=== PATIENT | female | born 1950 | race Caucasian/White ===

== ENCOUNTER 2020-11-01 14:19 | Outpatient (CLI) | payer MEDICARE, SELFPAY ==
--- NOTE | ~2020-11-01 | XR_ITS ---
EXAMINATION: XR chest 2V 11/01/2020 14:44 INDICATION: Cough for one month PROCEDURE: 2 view chest COMPARISON: No prior studies for comparison. FINDINGS: The lungs are clear. The cardiomediastinal silhouette is within normal limits. There are no pleural effusions. There is no pneumothorax suspected. IMPRESSION: 1: NO ACUTE CARDIOPULMONARY DISEASE. Reviewed, dictated and finalized at location A. COOK
== END 2020-11-01 14:20 | disposition home or self-care (01) ==
LOC: CHSIMG 14:23
PROVIDERS: PCP Internal Medicine; Visit Provider Internal Medicine
DX: R05 Cough (principal)
CPT/HCPCS: 71046

== ENCOUNTER 2020-11-03 13:55 | Outpatient (CLI) | payer MEDICARE, SELFPAY ==
--- NOTE | ~2020-11-03 | MM_ITS ---
EXAMINATION: MM screening [facility] BI w soumya HISTORY: Screening mammogram, history of left breast cancer TECHNIQUE: Craniocaudal and mediolateral oblique 3-D tomosynthesis images were obtained and synthetic 2-D images were generated. CAD analysis was submitted and interpreted. COMPARISON: 08/26/2015, 08/22/2015, 06/16/2012, 02/28/2011 BREAST PARENCHYMAL COMPOSITION: There are scattered areas of fibroglandular density. FINDINGS: Scattered benign-appearing calcifications are present. Stable lumpectomy changes are noted in the breasts. There is no evidence of suspicious mass, calcification, or architectural distortion t o suggest malignancy in either breast. There has been no suspicious interval change. IMPRESSION: 1. No mammographic evidence of malignancy. 2. Recommend routine screening mammography in one year. BI-RADS Category 2: Benign finding(s). Reviewed, dictated and finalized at location A. SPRINKLER SERVICE TECHNICIAN
== END 2020-11-03 13:56 | disposition home or self-care (01) ==
PROVIDERS: PCP Internal Medicine; Visit Provider Internal Medicine
DX: Z12.31 Encounter for screening mammogram for malignant neoplasm of breast (principal)
CPT/HCPCS: 77063; 77067

== ENCOUNTER 2023-08-13 16:08 | Outpatient (CLI) | payer MEDICARE, SELFPAY ==
--- NOTE | ~2023-08-13 | CT_ITS ---
EXAMINATION: CT abdomen pelvis w con DATE: 08/13/2023 17:50 INDICATION: Lower abdominal pain and abdominal mass TECHNIQUE: Computed tomography (CT) of the abdomen and pelvis was performed with 100 mL Omnipaque-350 intravenous contrast. Automated exposure control and iterative reconstruction technique were employe d. The dose-length product was 1077.93 mGy-cm. COMPARISON: 08/27/2012 FINDINGS: Stable appearance of a region of air trapping the right lower lobe containing tubular nonenhancing fl uid attenuation branching structure likely representing a mucus impacted bronchus with secondary bron chial atresia. There are couple small calcified nodules more peripherally in the right lower lobe con sistent with old granulomatous disease. Heart size is normal. No pericardial or pleural effusion. Sma ll sliding-type hiatal hernia. Small region of focal hepatic steatosis at the ligamentum teres. Gallbladder, spleen, bilateral adren al glands and kidneys are normal. Dystrophic calcific lesion at the tail of the pancreas, likely sequ annita of chronic pancreatitis. Bladder, anteverted uterus and bilateral adnexa are normal. Normal appen kim. No bowel obstruction. Moderate-sized fat-containing umbilical hernia. There is a large infraumbilical ventral hernia with a significant length of the transverse colon extending through the 4.2 x 3.6 cm os. There are multiple small foci of extraluminal gas loculated within the fat along the anterior margin of the distal port ion of the herniated colon at the left side of the hernia sac likely related to perforated diverticul itis. There is stranding in the surrounding fat within the hernia sac as well as in the overlying sub cutaneous fat. No fluid containing abscess or free intraperitoneal fluid. There are additional divert icula along the sigmoid colon. No pathologically enlarged abdominal or pelvic lymphadenopathy. Severe lower lumbar spondylosis. IMPRESSION: 1. Likely perforated diverticulitis arising from the distal transverse colon which is herniated into a large infraumbilical ventral hernia with small collection of multiple foci of extraluminal gas with in the hernia sac but no fluid containing abscess. 2. Small sliding-type hiatal hernia. 3. Moderate-sized fat-containing umbilical hernia. Reviewed, dictated and finalized at location A. IMPRESSION: 1. Likely perforated diverticulitis arising from the distal transverse colon wh ich is herniated into a large infraumbilical ventral hernia with small collecti on of multiple foci of extraluminal gas within the hernia sac but no fluid cont aining abscess. 2. Small sliding-type hiatal hernia. 3. Moderate-sized fat-containing umbilical hernia.
[2023-08-13 16:45] LABS: Basophils Absolute Auto 0.04 K/mm3 (0.00-0.10); Basophils Percent Auto 0.3 % (0.0-1.0); Eosinophils Absolute Auto 0.05 K/mm3 (0.02-0.50); Eosinophils Percent Auto 0.4 % (1.0-6.0); Hematocrit 35.8 % (35.0-42.0); Immature Granulocyte Absolute 0.07 K/mm3 (0.00-0.00); Immature Granulocyte Percent A 0.5 % (0.0-0.0); Lymphocytes Absolute Auto 1.33 K/mm3 (1.10-4.50); Lymphocytes Percent Auto 9.9 % (18.0-42.0); Mean Corpuscular HGB Conc 33.5 g/dL (32.0-36.0); Mean Corpuscular Hemoglobin 32.9 pg (27.0-31.0); Mean Corpuscular Volume 98.1 fL (78.0-102.0); Mean Platelet Volume 11.6 fl (9.2-11.8); Monocytes Absolute Auto 1.21 K/mm3 (0.10-0.90); Neutrophils Absolute Auto 10.8 K/mm3 (1.7-7.2); Neutrophils Percent Auto 79.9 % (50.0-70.0); Platelet Count Result 198 K/mm3 (150-420); Red Blood Count 3.65 M/mm3 (4.20-5.40); White Blood Count 13.5 K/mm3 (4.8-10.8)
[2023-08-13 17:12] LABS: Alanine Aminotransferase 20 U/L (14-59); Albumin Level 2.8 g/dL (3.4-5.0); Alkaline Phosphatase 91 U/L (46-116); Amylase 17 U/L (25-115); Anion Gap 13 mmol/L (8-16); Aspartate Amino Transferase 16 U/L (15-37); Bilirubin,Total 0.8 mg/dL (0.00-1.00); Blood Urea Nitrogen 24 mg/dL (7-18); Calcium 8.9 mg/dL (8.5-10.1); Carbon Dioxide 23 mmol/L (21-32); Chloride 100 mmol/L (98-108); Estimated Glomerular Filt Rate 49; Glucose 127 mg/dL (70-99); Lipase 23 U/L (16-77); Osmolality Calculated 288 mOsm/kg (285-295); Potassium 3.4 mmol/L (3.5-5.1); Sodium 136 mmol/L (136-145); Total Protein 6.9 g/dL (6.4-8.2)
[2023-08-13 18:22] LABS: Appearance Urine Clear (Clear); Bilirubin Urine Negative (Negative); Blood Urine Negative (Negative); Color Urine Yellow (Yellow); Glucose Urine UA Negative (Negative); Ketones Urine Negative (Negative); Leukocyte Esterase Ur Negative (Negative); Nitrate Urine Negative (Negative); Protein Urine Negative (Negative); Specific Grav Ur <= 1.005 (1.010-1.020); Urobilinogen Urine 0.2 mg/dL (0.2-1.0)
[2023-08-13 18:23] LABS: Add Urine Microscopic? NO
== END 2023-08-13 16:09 | disposition home or self-care (01) ==
PROVIDERS: PCP Internal Medicine; Visit Provider Nurse Practitioner Family
DX: R10.9 Unspecified abdominal pain (principal); R11.2 Nausea with vomiting, unspecified; K57.92 Diverticulitis of intestine, part unspecified, without perforation or abscess without bleeding; K43.9 Ventral hernia without obstruction or gangrene; K44.9 Diaphragmatic hernia without obstruction or gangrene; K42.9 Umbilical hernia without obstruction or gangrene
CPT/HCPCS: 36415; 74177; 80053; 81003; 82150; 83690; 85025; 87040; 87086; 87088; Q9967

== ENCOUNTER 2023-08-13 19:52 | Emergency (ER) | payer MEDICARE, SELFPAY ==
[2023-08-13 19:55] VITALS: BP 137/75; PULSE 85; RESP 18; TEMP 36.6; O2SAT 97
--- NOTE | 2023-08-13 23:00 | PC.NURSE ---
Assumed care of pt from CM Lorenzana at this time.
[2023-08-13 23:01] VITALS: BP 142/73; PULSE 85; RESP 20; O2SAT 99
--- NOTE | 2023-08-13 23:11 | PC.NURSE ---
report and care given to CM Shaikh. all questions answered.
[2023-08-13 23:16] VITALS: BP 143/72; PULSE 84; RESP 20; O2SAT 100
[2023-08-13 23:18] LABS: Lactic Acid Reflex 1.3 mmol/L (0.7-2.0)
[2023-08-13 23:31] VITALS: BP 134/74; PULSE 85; RESP 22; O2SAT 95
[2023-08-13 23:46] VITALS: BP 134/77; PULSE 88; RESP 21; O2SAT 99
--- NOTE | 2023-08-13 23:47 | ED.ABDPAIN ---
HPI - Abdominal Pain General Chief Complaint: Abdominal Pain Stated Complaint: abnormal abd. CT Time Seen by Provider: 08/13/23 22:50 Source: patient and old records reviewed Mode of arrival: ambulatory Limitations: no limitations History of Present Illness HPI narrative: Patient is a 72-year-old female who presents to the ED with report of abdominal pain and abnormal CT. Patient reports over the last 1 week she has had intermittent fevers, Tmax 101.6. Last Saturday she had a persistent fever all day and began vomiting that night. She had pain in her left and mid lower abdomen at that time. She thought she may have strained a muscle, vomiting. She denies any further vomiting since then, but does report persistent fevers and abdominal pain. She was seen at her primary care doctor's office today and had outpatient laboratory studies and CT scan of her abdomen. She was told the CT was abnormal and to come to the ED for further evaluation. Patient denies any current nausea. Denies diarrhea or constipation. Last BM this morning or yesterday. Denies rectal bleeding or melena. Denies urinary complaints. Patient also reports her abdomen has been red and firm since yesterday. Related Data Allergies Allergy/AdvReac Type Severity Reaction Status Date / Time No Known Allergies Allergy Unknown Verified 09/09/09 13:37 NKFA Allergy Unknown Uncoded 05/11/03 12:28 Review of Systems Review of Systems: CONSTITUTIONAL: Denies fever, chills, or sweats. CARDIOVASCULAR: Denies chest pain. RESPIRATORY: Denies dyspnea. GASTROINTESTINAL: See HPI. GENITOURINARY: Denies dysuria or hematuria. SKIN: See HPI. MUSCULOSKELETAL: Denies back pain, joint pain, or myalgia. All systems reviewed & are unremarkable except as noted in HPI and below [facility] Family History Family History Other Family history of type 2 diabetes mellitus Social History Social History Smoking status: Never smoker Exam Narrative: GENERAL: Well appearing, obese with BMI of 35.8, non-toxic, in no acute distress. HEAD: Normocephalic, atraumatic. NECK: Supple. No adenopathy, no masses. RESPIRATORY: Airway patent, respirations nonlabored. Clear to auscultation bilaterally, no rales, rhonchi, wheezing. CARDIOVASCULAR: Regular rate and rhythm without murmurs, rubs, or gallops. Radial pulses 2+ and equal bilaterally. ABDOMINAL: Soft, tenderness in left lower quadrant and left-sided suprapubic region. Nondistended, no hepatosplenomegaly. Normoactive BS. Anterior lower abdominal wall appears erythematous and warm with palpable hernia bulge just below umbilicus. Focal tenderness over hernia bulge. Hernia bulge feels slightly firm, no significant movement of bowels felt with manipulation. Erythema extends across entire lower abdomen. Small umbilical hernia also noted, nontender. MUSCULOSKELETAL: Moves all extremities. Strength/ROM intact without gross deformities. SKIN: Warm, dry. NEURO: A&O X3. Speech clear. Cranial nerves II-XII grossly intact. Steady gait. No ataxic movements. PSYCHIATRIC: Appropriate mood and affect. Normal interaction. Course Vital Signs Vital signs: Vital Signs Temperature 97.9 F 08/13/23 19:55 Pulse Rate 85 08/13/23 19:55 Respiratory Rate 18 08/13/23 19:55 Blood Pressure 137/75 08/13/23 19:55 Pulse Oximetry 97 08/13/23 19:55 Oxygen Delivery Room Air 08/13/23 19:55 Temperature 97.9 F 08/13/23 19:55 Pulse Rate 88 08/13/23 23:46 Respiratory Rate 21 H 08/13/23 23:46 Blood Pressure 134/77 08/13/23 23:46 Pulse Oximetry 99 08/13/23 23:46 Oxygen Delivery Room Air 08/13/23 19:55 MDM - Abdominal Pain MDM Narrative Medical decision making narrative: Patient presented to ED with 1 week history of left lower abdominal pain, intermittent fevers, abnormal outpatient CT. Review of records albertina
[2023-08-14] MEDS: SODIUM CHLORIDE 0.9% IV 1,000 ML 999 ML IV CONT (00:20)
[2023-08-14] MEDS: PIPERACILLN/TAZ 3.375GM/NS50ML 3.375 GM/50 ML BAG IVPB (00:21)
[2023-08-14 01:06] LABS: Appearance Urine Clear (Clear); Bacteria Urine None Seen /hpf; Bilirubin Urine Negative (Negative); Blood Urine Negative (Negative); Color Urine Yellow (Yellow); Glucose Urine UA Negative (Negative); Ketones Urine Trace mg/dL (Negative); Leukocyte Esterase Ur Negative LEU/UL (Negative); Need Manual Microscopic Reviewed; Nitrate Urine Negative (Negative); Non Pathogenic Casts 0-2; Protein Urine 1+ mg/dL (Negative); Squamous Epithelial Cell Urine None seen /hpf (Few); WBC Urine 0-5 /hpf; pH Urine 5.5 (5.0-9.0)
[2023-08-14 01:07] LABS: Add Urine Microscopic? YES; Specific Grav Ur 1.089 (1.001-1.035)
[2023-08-14] MEDS: LACTATED RINGERS 1,000 ML 999 ML IV CONT (01:45)
[2023-08-14 01:47] VITALS: BP 113/54; PULSE 93; RESP 24; O2SAT 96
== END 2023-08-14 02:27 | disposition short-term general hospital (02) ==
PROVIDERS: Emergency Provider Physician Assistant; PCP Internal Medicine
DX: K57.20 Diverticulitis of large intestine with perforation and abscess without bleeding (principal); K43.6 Other and unspecified ventral hernia with obstruction, without gangrene; R50.9 Fever, unspecified
CPT/HCPCS: 36415; 81001; 83605; 96361; 96365; 99285; J2543; J7030; J7120

== ENCOUNTER 2023-09-20 12:01 | Outpatient (CLI) | payer MEDICARE, SELFPAY ==
--- NOTE | ~2023-09-20 | XR_ITS ---
EXAMINATION: XR chest 2V DATE: 09/20/2023 12:33 INDICATION: Fever and cough. TECHNIQUE: Frontal and lateral views of the chest were obtained. COMPARISON: Chest 2 views 11/01/2020, CT abdomen and pelvis 08/13/2023 FINDINGS: There is no pneumonia, pleural effusion, or pneumothorax. The heart size is normal. There i s mild chronic anterior wedging of T12 vertebral body. IMPRESSION: 1. No acute cardiopulmonary disease. Reviewed, dictated and finalized at location E.
[2023-09-20 12:22] LABS: Basophils Absolute Auto 0.04 K/mm3 (0.00-0.10); Basophils Percent Auto 0.5 % (0.0-1.0); Eosinophils Absolute Auto 0.27 K/mm3 (0.02-0.50); Eosinophils Percent Auto 3.3 % (1.0-6.0); Hematocrit 37.6 % (35.0-42.0); Hemoglobin 12.1 g/dL (11.7-13.8); Immature Granulocyte Absolute 0.02 K/mm3 (0.00-0.00); Immature Granulocyte Percent A 0.2 % (0.0-0.0); Lymphocytes Absolute Auto 1.55 K/mm3 (1.10-4.50); Lymphocytes Percent Auto 18.8 % (18.0-42.0); Mean Corpuscular HGB Conc 32.2 g/dL (32.0-36.0); Mean Corpuscular Hemoglobin 32.7 pg (27.0-31.0); Mean Corpuscular Volume 101.6 fL (78.0-102.0); Mean Platelet Volume 10.5 fl (9.2-11.8); Monocytes Absolute Auto 0.78 K/mm3 (0.10-0.90); Monocytes Percent Auto 9.5 % (2.0-11.0); Neutrophils Absolute Auto 5.6 K/mm3 (1.7-7.2); Neutrophils Percent Auto 67.7 % (50.0-70.0); Platelet Count Result 213 K/mm3 (150-420); Red Cell Distribution Width 14.8 % (11.6-14.4); White Blood Count 8.2 K/mm3 (4.8-10.8)
[2023-09-20 13:08] LABS: Alanine Aminotransferase 17 U/L (14-59); Albumin Level 3.1 g/dL (3.4-5.0); Alkaline Phosphatase 113 U/L (46-116); Anion Gap 11 mmol/L (8-16); Aspartate Amino Transferase 14 U/L (15-37); Bilirubin,Total 0.4 mg/dL (0.00-1.00); Blood Urea Nitrogen 19 mg/dL (7-18); CRP 7.6 mg/dL (0.0-0.9); Calcium 9.1 mg/dL (8.5-10.1); Carbon Dioxide 27 mmol/L (21-32); Chloride 105 mmol/L (98-108); Estimated Glomerular Filt Rate > 60; Glucose 113 mg/dL (70-99); Osmolality Calculated 299 mOsm/kg (285-295); Potassium 3.7 mmol/L (3.5-5.1); Sodium 143 mmol/L (136-145); Total Protein 6.5 g/dL (6.4-8.2)
== END 2023-09-20 12:02 | disposition home or self-care (01) ==
LOC: CHSLAB 12:03
PROVIDERS: PCP Internal Medicine; Visit Provider Internal Medicine
DX: R05.9 Cough, unspecified (principal); R50.9 Fever, unspecified; K57.80 Diverticulitis of intestine, part unspecified, with perforation and abscess without bleeding
CPT/HCPCS: 36415; 71046; 80053; 85025; 86140; 87040

== ENCOUNTER 2023-10-01 08:54 | Outpatient (CLI) | payer MEDICARE, SELFPAY ==
--- NOTE | ~2023-10-01 | CT_ITS ---
CT of the Abdomen and Pelvis: Indication: Abscess Technique: 2.5 mm axial scans were obtained through the abdomen and pelvis following intravenous adm inistration of 100 cc of Omnipaque 350. Dose reduction technique was used on this scan by utilizing a utomated exposure control and iterative reconstruction technique. The dose-length product (DLP) was 1 008.27 mGy-cm. COMPARISON: 08/13/2023 Findings: Scans through the lung bases demonstrate stable impacted bronchus or thrombosed segmental pulmonary artery at the right lung base.. The liver, spleen, pancreas, gallbladder, adrenals and kidneys are within normal limits. No evidence of aortic aneurysm. No lymphadenopathy. No bowel obstruction or bowel wall thickening. There is no evidence to suggest acute appendicitis. Ev idence of prior ventral herniorrhaphy. Small seroma present in the anterior subcutaneous soft tissues . Images through the pelvis were performed. Urinary bladder unremarkable. No adnexal mass seen. No asci ladan seen. Impression: Evidence of interval ventral herniorrhaphy. Small seroma in the anterior subcutaneous soft tissues, v ersus possibly abscess. No other significant abnormality or pelvis. Stable impacted bronchus or thrombosed segmental pulmonary artery at the right lung base. Reviewed, dictated and finalized at location . CEMENTER Impression: Evidence of interval ventral herniorrhaphy. Small seroma in the anterior subcut aneous soft tissues, versus possibly abscess. No other significant abnormality or pelvis. Stable impacted bronchus or thrombosed segmental pulmonary artery at the right lung base.
== END 2023-10-01 08:55 | disposition home or self-care (01) ==
LOC: CHSIMG 08:57
PROVIDERS: PCP Internal Medicine; Visit Provider Internal Medicine
DX: K65.1 Peritoneal abscess (principal); R91.8 Other nonspecific abnormal finding of lung field
CPT/HCPCS: 74177; Q9967

== ENCOUNTER 2023-10-04 10:16 | Outpatient (CLI) | payer MEDICARE, SELFPAY ==
--- NOTE | ~2023-10-04 | US_ITS ---
EXAMINATION: US venous doppler [facility] DATE: 10/04/2023 11:13 INDICATION: Lower limb swelling. TECHNIQUE: Grayscale ultrasound images without and with compression and Doppler ultrasound images of the bilateral lower extremity veins were obtained. COMPARISON: None. FINDINGS: The visualized portions of right common femoral vein, profunda (deep) femoral vein, femoral vein, and greater saphenous vein outflow are patent. There is thrombus in right popliteal, posterior tibial, a nd peroneal veins. The visualized portions of left common femoral vein, profunda femoral vein, femoral vein, popliteal v ein, peroneal veins, posterior tibial veins, and greater saphenous vein outflow are patent. IMPRESSION: 1. Deep vein thrombosis involving right popliteal, posterior tibial, and peroneal veins. Reviewed, dictated and finalized at location A. EY STRIPPER IMPRESSION: 1. Deep vein thrombosis involving right popliteal, posterior tibial, and peron eal veins.
[2023-10-04 10:32] LABS: Basophils Absolute Auto 0.05 K/mm3 (0.00-0.10); Basophils Percent Auto 0.6 % (0.0-1.0); Eosinophils Absolute Auto 0.34 K/mm3 (0.02-0.50); Hematocrit 38.5 % (35.0-42.0); Hemoglobin 12.2 g/dL (11.7-13.8); Immature Granulocyte Absolute 0.03 K/mm3 (0.00-0.00); Immature Granulocyte Percent A 0.3 % (0.0-0.0); Lymphocytes Absolute Auto 2.17 K/mm3 (1.10-4.50); Lymphocytes Percent Auto 25.3 % (18.0-42.0); Mean Corpuscular HGB Conc 31.7 g/dL (32.0-36.0); Mean Corpuscular Hemoglobin 31.9 pg (27.0-31.0); Mean Corpuscular Volume 100.8 fL (78.0-102.0); Mean Platelet Volume 10.4 fl (9.2-11.8); Monocytes Absolute Auto 0.63 K/mm3 (0.10-0.90); Monocytes Percent Auto 7.3 % (2.0-11.0); Neutrophils Absolute Auto 5.4 K/mm3 (1.7-7.2); Neutrophils Percent Auto 62.5 % (50.0-70.0); Platelet Count Result 233 K/mm3 (150-420); Red Blood Count 3.82 M/mm3 (4.20-5.40); Red Cell Distribution Width 14.7 % (11.6-14.4); White Blood Count 8.6 K/mm3 (4.8-10.8)
[2023-10-04 10:55] LABS: D Dimer 20.33 mg/L (0.19-0.50)
[2023-10-04 11:38] LABS: Alanine Aminotransferase 22 U/L (14-59); Albumin Level 3.3 g/dL (3.4-5.0); Alkaline Phosphatase 107 U/L (46-116); Anion Gap 9 mmol/L (8-16); Aspartate Amino Transferase 18 U/L (15-37); Bilirubin,Total 0.6 mg/dL (0.00-1.00); Blood Urea Nitrogen 14 mg/dL (7-18); CRP 1.3 mg/dL (0.0-0.9); Carbon Dioxide 29 mmol/L (21-32); Chloride 105 mmol/L (98-108); Estimated Glomerular Filt Rate > 60; Glucose 110 mg/dL (70-99); Osmolality Calculated 297 mOsm/kg (285-295); Sodium 143 mmol/L (136-145); Total Protein 6.7 g/dL (6.4-8.2)
== END 2023-10-04 10:17 | disposition home or self-care (01) ==
PROVIDERS: PCP Internal Medicine; Visit Provider Internal Medicine
DX: I82.431 Acute embolism and thrombosis of right popliteal vein (principal); I82.441 Acute embolism and thrombosis of right tibial vein; I82.451 Acute embolism and thrombosis of right peroneal vein; M79.89 Other specified soft tissue disorders
CPT/HCPCS: 36415; 80053; 85025; 85380; 86140; 93970

== ENCOUNTER 2023-10-17 13:07 | Outpatient (CLI) | payer MEDICARE, SELFPAY ==
--- NOTE | ~2023-10-17 | MM_ITS ---
EXAMINATION: MM screening [facility] BI w soumya HISTORY: Screening mammogram TECHNIQUE: Craniocaudal and mediolateral oblique 3-D tomosynthesis images were obtained and synthetic 2-D images were generated. CAD analysis was submitted and interpreted. COMPARISON: 11/03/2020 bilateral screening mammogram BREAST PARENCHYMAL COMPOSITION: There are scattered areas of fibroglandular density. FINDINGS: Stable volume loss and scarring of left breast from partial mastectomy for breast cancer. Right biopsy markers. Scattered bilateral benign calcifications. There is no evidence of suspicious mass, calcification, or architectural distortion to suggest malignancy in either breast. There has been no suspicious interv al change. IMPRESSION: 1. Status post left partial mastectomy for breast cancer. No mammographic evidence of malignancy. 2. Recommend routine screening mammography in one year. BI-RADS Category 2: Benign finding(s). Reviewed, dictated and finalized at location A. OGICAL SAMPLE TESTER IMPRESSION: 1. Status post left partial mastectomy for breast cancer. No mammographic evide nce of malignancy. 2. Recommend routine screening mammography in one year. BI-RADS Category 2: Benign finding(s).
--- NOTE | ~2023-10-17 | DEXA_ITS ---
Bone Density Report Name: BUCK PARSONS Age: 73 Sex: Female Ethnicity: White Date of : 1950 Indication: postmenopausal; screening for osteoporosis; height loss; cancer; Referring Provider: Dedrick Martinez Study: Bone densitometry was performed. Exam Date: October 17, 2023 Accession number: [id number] Bone Density: Region BMD T-score Z-score Classification AP Spine(L1, L2, L3) 0.794 -2.0 0.3 Osteopenia Femoral Neck (Left) 0.588 -2.4 -0.3 Osteopenia Total Hip (Left) 0.766 -1.4 0.3 Osteopenia Femoral Neck (Right) 0.605 -2.2 -0.2 Osteopenia Total Hip (Right) 0.705 -1.9 -0.2 Osteopenia Femoral Neck Mean 0.596 -2.3 -0.3 Osteopenia Total Hip Mean 0.735 -1.7 0.0 Osteopenia World Health Organization criteria for BMD impression classify patients as: Normal (T-score at or above -1.0), Osteopenia (T-score between -1.0 and -2.5), or Osteoporosis (T-score at or below -2.5). 10-year Fracture Risk(1): Major Osteoporotic Fracture 14% Hip Fracture 3.6% Reported Risk Factors: [place] (), Neck BMD=0.588, BMI=35.7 (1) FRAX(R) Version 3.08. Fracture probability calculated for an untreated patient. Fracture probability may be lower if the patient has received treatment. Clinical Information Provided by Patient: Has used the following medications: Vitamin D Has the following medical conditions: Cancer Patient maximum height was 63 Menopause Age: 44 No regular weight bearing exercise Drinks caffeinated beverages Onset of menses at age 11 Number of children 3 Impression: The patient has low bone mass, based on the Left Femoral Neck T-score. Discussion: BONE DENSITY IS LOW AT ONE OR MORE SKELETAL SITES. This patient's lowest T-score is low at one or more skeletal sites. It meets the World Health Organization's (WHO) criteria for ?low bone mass? (T-score between -1.0 and -2.5). The patient's 10-year risk of fracture as calculated by FRAX is less than the threshold where pharmacological therapy is recommended by the National Osteoporosis Foundation (NOF). However, all treatment decisions require clinical judgment and consideration of individual patient factors, including patient preferences, comorbidities, previous drug use, risk factors not captured in the FRAX model (e.g., frailty, falls, vitamin D deficiency, increased bone turnover, interval significant decline in bone density) and possible under or overestimation of fracture risk by FRAX. The patient should follow a healthful lifestyle (good nutrition with adequate calcium and vitamin D, and appropriate weight-bearing exercise). Follow-Up: Consider repeating this study in 2 to 3 years to reassess this patient's status, or sooner if there is some new clinical indication. Reported by: Dr. Miguel Brooks on 10/17/2023 1:53:00 PM. Reviewed, dictated and
== END 2023-10-17 13:08 | disposition home or self-care (01) ==
LOC: CHSIMG 13:09
PROVIDERS: PCP Internal Medicine; Visit Provider Internal Medicine
DX: Z12.31 Encounter for screening mammogram for malignant neoplasm of breast (principal); Z78.0 Asymptomatic menopausal state; M85.89 Other specified disorders of bone density and structure, multiple sites
CPT/HCPCS: 77063; 77067; 77080

== ENCOUNTER 2024-04-10 13:45 | Outpatient (CLI) | payer MEDICARE, SELFPAY ==
--- NOTE | ~2024-04-10 | US_ITS ---
EXAMINATION: US venous doppler [facility] DATE: 04/10/2024 14:12 INDICATION: Annual follow-up of right lower limb deep venous thrombosis TECHNIQUE: Grayscale ultrasound images without and with compression and Doppler ultrasound images of the right lower extremity veins were obtained. COMPARISON: 10/04/2023 FINDINGS: The visualized portions of right common femoral vein, profunda (deep) femoral vein, femoral vein, pop liteal vein, posterior tibial veins, peroneal veins, gastrocnemius vein and greater saphenous vein ou tflow are all now patent. IMPRESSION: 1. No residual deep venous thrombosis in the right lower limb. Reviewed, dictated and finalized at location A.
== END 2024-04-10 13:46 | disposition home or self-care (01) ==
LOC: CHSIMG 13:47
PROVIDERS: PCP Internal Medicine; Visit Provider Internal Medicine
DX: I82.401 Acute embolism and thrombosis of unspecified deep veins of right lower extremity (principal); R73.03 Prediabetes
CPT/HCPCS: 93971

== ENCOUNTER 2025-07-30 11:04 | Outpatient (CLI) | payer MEDICARE, SELFPAY ==
--- NOTE | ~2025-07-30 | XR_ITS ---
EXAMINATION: XR chest 2V, 07/30/2025 11:20 CDT HISTORY: Febrile Illness/ R/O DVT COMPARISON: No comparisons available. Technique: 2 views obtained. Findings: The lungs are clear, no effusion. No pneumothorax. Heart is normal size. Mediastinal and hilar contours are within normal limits. Bony thorax no acute abnormality. Impression: No acute cardiopulmonary abnormality. Reviewed, dictated and finalized at location A. Impression: No acute cardiopulmonary abnormality.
[2025-07-30 11:22] LABS: Hematocrit 42.6 % (35.0-42.0); Hemoglobin 13.8 g/dL (11.7-13.8); Mean Corpuscular HGB Conc 32.4 g/dL (32-36); Mean Corpuscular Hemoglobin 32.0 pg (27.0-31.0); Mean Corpuscular Volume 98.8 fL (78.0-102.0); Platelet Count Result 195 K/mm3 (150-420); Red Blood Count 4.31 M/mm3 (4.20-5.40); White Blood Count 7.1 K/mm3 (4.8-10.8)
[2025-07-30 11:23] LABS: Add Urine Microscopic? YES; Appearance Urine Clear (Clear); Glucose Urine UA Negative (Negative); Leukocyte Esterase Ur Trace LEU/UL (Negative); Nitrate Urine Negative (Negative); Specific Grav Ur 1.015 (1.010-1.020)
[2025-07-30 11:39] LABS: Hemoglobin A1C 5.9 % (<5.7)
[2025-07-30 11:44] LABS: Alanine Aminotransferase 18 U/L (6-35); Albumin Level 4.6 g/dL (3.5-5.1); Alkaline Phosphatase 91 U/L (38-126); Anion Gap 9 mmol/L (4-12); Aspartate Amino Transferase 26 U/L (14-36); Bilirubin,Total 1.1 mg/dL (0.2-1.3); Blood Urea Nitrogen 17 mg/dL (7-17); CRP < 0.5 mg/dL (<1.0); Calcium 9.6 mg/dL (8.4-10.2); Carbon Dioxide 28 mmol/L (22-30); Chloride 101 mmol/L (98-107); Estimated Glomerular Filt Rate 60; Glucose 112 mg/dL (65-110); Osmolality Calculated 288 mOsm/kg (285-295); Potassium 4.5 mmol/L (3.4-5.0); Sodium 138 mmol/L (137-145); Total Protein 7.5 g/dL (6.3-8.2)
--- OUTSIDE RECORDS SUMMARY | 2025-07-30 12:15 | XMS_ITS | Clinical Summary ---
Author Organization [facility] Address [address] [place] [address] Care Team Providers Care Soft Boarder Name Role Phone Dedrick Martinez MD Primary Care Provider [phone] Source Comments [facility],non-owned Affiliates and Associated Physician Practices is amultiple site organization consisting of ambulatory clinics and hospital sitesin [place], [place], [place] and [place]. This disclosure is being madepursuant to the Care Everywhere program and may not contain all information available regarding this patient. Last updated 18.[facility] Allergies No known active allergies Medications * Be aware that medications may not be up to date on this document. Alwaysverify current medications with the patient. oxyCODONE, immediate release, (Roxicodone) 5 MG tabletIndication s:Ventral hernia with obstruction and without gangrene Take 1 (one) tablet by mouth every 6 hours as needed for Pain 12 tablet 3 Active Additional Information Patient not taking.Reported on 09/04/2023 polyethylene glycol 3350 (Miralax) 17 GM/SCOOP powder Take 17 (seventeen) g by mouth once daily 238 g 3 Active Additional Information Patient not taking.Reported on 09/04/2023 azithromycin (Zithromax) 250 MG tablet 3 Active methylPREDNISolo ne (Medrol Dosepak) 4 MG tablet 3 Active Active Problems Problem Noted Date Diagnosed Date S/P exploratory laparotomy 08/19/2023 Colon perforation 08/14/2023 Resolved Problems Problem Noted Date Diagnosed Date Resolved Date S/P small bowel resection 08/19/2023 Abdominal pain, left lower quadrant 08/14/2023 08/19/2023 Social History Tobacco Use Types Packs/Day Years Used Date Smoking Tobacco: Never Smokeless Tobacco: Never Tobacco Cessation:Counseling Given: No AUDIT-C Answer Date Recorded Q1: How often do you have a drink containing alcohol? Never 08/14/2023 Q2: How many drinks containi ng alcohol do you have on a typical day when you are drinking? Patient does not drink Q3: How often do you have si x or more drinks on one occasion? Never 08/14/2023 Overall Financial Resource Strain (CARDIA) Answe r Date Recorded How hard is it for you to pa y for the very basics like food, housing, medical care, and heating? Not hard at all 08/14/2023 [facility] - Occupational Stress Questionnaire Answer Date Recorded Do you feel stress - tense, restless, nervous, or anxious, or unable to sleep at night because your mind is troubled all the time - these days? Not at all 08/14/2023 Hunger Vital Sign Answer Date Recorded Within the past 12 months, y ou worried that your food would run out before you got the money to buy more. Never true 08/14/20 23 Within the past 12 months, t he food you bought just didn't last and you didn't have money to get more. Never true 08/14/2023 PRAPARE - Transportation Answer Date Re corded In the past 12 months, has l ack of transportation kept you from medical appointments or from getting medications? No 07/20 In the past 12 months, has l ack of transportation kept you from meetings, work, or from getting things needed for daily living? No 08/14/2023 Housing Stability Vital Sign Answer Yaw e Recorded In the last 12 months, was t here a time when you were not able to pay the mortgage or rent on time? No 08/14/2023 In the last 12 months, how many places have you lived? 1 08/14/2023 In the last 12 months, was t here a time when you did not have a steady place to sleep or slept in a penitentiary (including now)? No 08/14/2023 Comments No Sex and Gender Information Value Date Recorded Sex Assigned at Not on file Legal Sex Female 12:56 AM CDT Gender Identity Not on file Sexual Orientation Not on file Last Filed Vital Signs Vital Sign Reading Time Taken Comments Blood Pressure 153/85 09/11/2023 2:50 PM CDT Pulse 87 09/11/2023 2:50 PM CDT Temperature 36.4 C (97.6 F) 09/11/2023 2:50 PM CDT Respiratory Rate 18 08/19/2023 11:04 AM CDT Oxygen Saturation 96% 09/11/2023 2:50 PM CDT Inhaled Oxygen Concentration 30% 08/15/2023 4 :00 AM CDT Weight 91.2 kg (201 lb) 09/11/2023 2:50 PM CDT Height 160 cm (5' 3) 09/11/2023 2:50 PM CDT Body Mass Index 35.61 09/11/2023 2:50 PM CDT Plan of Treatment Health Maintenance Due Date Last Done Comments BONE DENSITY TESTING 1950 COLOGUARD (AGES 45-75) - COL ON CA SCREENING 1950 COLON MONITORING 1950 COLONOSCOPY - COLON CA SCREENING 1950 CT COLONOGRAPHY - COLON CA SCREENING 1950 Colorectal Cancer Screening 1950 FIT - COLON CA SCREENING 1950 FLEX SIG - COLON CA SCREENING 1950 LIPID TESTING 1950 MAMMOGRAM 1950 HEPATITIS C SCREENING 10/06/1967 DTAP/TDAP/TD VACCINES (1 - Tdap) 1968 PNEUMOCOCCAL VACCINE 50+ (1 of 1 - PCV) 1999 ZOSTER VACCINE (1 of 2) 1999 COVID-19 VACCINE ( - 2023-2 5 season) 2024 Respiratory Syncytial Virus (RSV) Vaccine Pt: or over 60 yrs (1 - 1-dose 75+ series) 2024 DEPRESSION SCREENING 11/18/2024 MEDICARE AWV CALENDAR YEAR 2024 INFLUENZA VACCINE (#1) 2025 HEPATITIS B VACCINE Aged Out No longe r eligible based on patient's age to complete this topic HIB VACCINE Aged Out No longer eligi ble based on patient's age to complete this topic HPV VACCINE Aged Out No longer eligi ble based on patient's age to complete this topic MENINGOCOCCAL (Group B) VACC INE SHARED DECISION-MAKING Aged Out No longer eligibl e based on patient's age to complete this topic MENINGOCOCCAL GROUPS A/C/Y/W VACCINE Aged Out No longer eligible b ased on patient's age to complete this topic Medical Devices Implanted Type Area Intake Coordinator Device Identifier Shelf Expiration Date Model / Serial / Lot Graft Prcn 7.9x5.9in Xenmatrix Ab Rect Implanted:Qty: 1 on 08/15/2023 by Wilfredo Arias MD at [facility] N/A: Abdomen [employer] 12/15/2023 [id number] / / [id number] Insurance [employer] MEDICARE ADV Advance Directives * Full Code (Latest Code Status on File) Date Activated Date Inactivated Comments 08/14/2023 3:57 AM 08/19/2023 2:46 PM Care Teams Soft Boarder Relationship Specialty Start Date End Date Dedrick Martinez MD [address] [place] [address] PCP - General Internal Medicine 08/15/23
== END 2025-07-30 11:05 | disposition home or self-care (01) ==
LOC: CHSLAB 11:07
PROVIDERS: PCP Internal Medicine; Visit Provider Internal Medicine
DX: R73.03 Prediabetes (principal); R50.9 Fever, unspecified; I82.409 Acute embolism and thrombosis of unspecified deep veins of unspecified lower extremity
CPT/HCPCS: 36415; 71046; 80053; 81001; 83036; 85027; 85380; 86140